=== PATIENT | female | born 1990 | race African-American/Black ===

== ENCOUNTER 2018-01-30 17:25 | Emergency (ER) | payer MEDICAID, OTHER ==
[~2018-01-30] VITALS: Ht 165.1 cm; Wt 86.0 kg
[2018-01-30] MEDS ORDERED: TETANUS, DIPHTHERIA, PERTUSSIS VAC/PF 0.5ML (>7YR OLD) IM ONE (21:00)
[2018-01-30] MEDS ORDERED: BACITRACIN ZINC OINT UDPKT TOP ONE (21:00)
[2018-01-30] MEDS ORDERED: LIDOCAINE HCL 1% 20ML VIAL (Pyxis) INJ MC ONE (21:00)
[2018-01-30 21:31] VITALS: BP 127/86
== END 2018-01-30 22:30 | disposition home or self-care (01) ==
LOC: ER 22:25
DX: S61.210A Laceration without foreign body of right index finger without damage to nail, initial encounter (principal); W26.0XXA Contact with knife, initial encounter; Y93.G3 Activity, cooking and baking; Y92.89 Other specified places as the place of occurrence of the external cause; F17.200 Nicotine dependence, unspecified, uncomplicated; Z23 Encounter for immunization; Z88.6 Allergy status to analgesic agent
CPT/HCPCS: 12002; 90471; 90715; 99283; J3490; Z7610

== ENCOUNTER 2024-10-12 22:06 | Emergency (ER) | payer MEDICAID, OTHER ==
[~2024-10-12] VITALS: Ht 167.6 cm; Wt 100.0 kg
[~2024-10-12 22:06] MED LIST: AMLO2.5T2 MT
[2024-10-12 22:26] VITALS: BP 159/86; PULSE 108; RESP 16; TEMP 97.6; O2SAT 98
[2024-10-12] MEDS ORDERED: ACETAMINOPHEN 1000MG/100ML 100 ML IV ONE (22:30)
[2024-10-12] MEDS ORDERED: SODIUM CHLORIDE 0.9% 1,000 ML IV ONE (22:30)
== END 2024-10-13 00:33 | disposition left against medical advice (07) ==
LOC: ER 22:06
DX: N93.9 Abnormal uterine and vaginal bleeding, unspecified (principal); I10 Essential (primary) hypertension; Z90.710 Acquired absence of both cervix and uterus; Z88.6 Allergy status to analgesic agent; Z79.899 Other long term (current) drug therapy
CPT/HCPCS: 99283; J7030; J0131